=== PATIENT | female | born 1995 | race Caucasian/White ===

== ENCOUNTER 2018-11-09 10:03 | Emergency (ER) | payer MEDICAID ==
--- NOTE | 2018-11-09 10:17 | EDM.PDOC ---
ED HPI GENERAL MEDICAL PROBLEM - General Chief Complaint: Abdominal Pain Stated Complaint: abod pain Time Seen by Provider: 11/09/18 10:07 Source of Information: Reports: Patient History Limitations: Reports: No Limitations - History of Present Illness INITIAL COMMENTS - FREE TEXT/NARRATIVE: Patient presents from home by ambulance describing nausea, repeated vomiting, abdominal cramping over the last few days. Symptoms started at a lower intensity earlier but in the last 24 hours have worsened substantially. She can' t keep food down. She now is dry heaving, nothing is really coming up. She is noticed heartburn over the last week, which is not typical for her, as well as loading. She is uncertain whether she could be or not. Her last menstrual period was from 19 October through 24 October and was usual character. No one else ill around her with similar symptoms. She feels better at the moment compared to earlier this morning. No medications were given by paramedics. Onset: Gradual Duration: Day(s): (4) Location: Reports: Abdomen Quality: Reports: Burning Severity: Moderate Improves with: Reports: None Worsens with: Reports: None Context: Denies: Sick Contact - Related Data Allergies Allergy/AdvReac Type Severity Reaction Status Date / Time amoxicillin Allergy Hives Verified 08/01/16 15:14 Penicillins Allergy Hives Verified 08/01/16 15:14 Sulfa (Sulfonamide Allergy Hives Verified 08/01/16 15:14 Antibiotics) Home Meds: Home Meds Sertraline HCl [Zoloft] 200 mg PO BEDTIME 11/09/18 [History] Past Medical History Other Cardiovascular History: heart murmur as baby. no murmur now. 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 Denies: Fever GI/Abdominal: Reports: Abdominal Pain, Distension, Vomiting. Denies: Constipation, Diarrhea, Melena : Reports: No Symptoms Musculoskeletal: Reports: No Symptoms ED EXAM, GI/ABD - Physical Exam Exam: See Below Text/Narrative:: The patient is lying supine on the cart and room 5 using her cell phone when I enter. Exam Limited By: No Limitations General Appearance: Alert Respiratory/Chest: No Respiratory Distress Cardiovascular: Regular Rate, Rhythm GI/Abdominal Exam: Normal Bowel Sounds, Soft, Tender. No: Guarding, Rigid Course - Vital Signs Last Recorded V/S: Last Vital Signs Temp 35.7 C 11/09/18 10:30 Pulse 88 11/09/18 10:30 Resp 14 11/09/18 10:30 BP 153/97 H 11/09/18 10:30 Pulse Ox 95 11/09/18 10:30 - Orders/Labs/Meds Labs: Laboratory Tests 11/09/18 11/09/18 11/09/18 Range/Units 10:43 10:44 10:51 WBC 14.5 H (4.5-11.0) K/uL RBC 5.61 H (3.30-5.50) M/uL Hgb 15.1 H D (12.0-15.0) g/dL Hct 47.1 (36.0-48.0) % MCV 84 (80-98) fL MCH 27 (27-31) pg MCHC 32 (32-36) % Plt Count 214 (150-400) K/uL Neut % (Auto) 80 H (36-66) % Lymph % (Auto) 10 L (24-44) % [place] % (Auto) 7 H (2-6) % Eos % (Auto) 4 (2-4) % Baso % (Auto) 0 (0-1) % Sodium (140-148) mmol/L Potassium (3.6-5.2) mmol/L Chloride (100-108) mmol/L Carbon Dioxide (21-32) mmol/L Anion Gap (5.0-14.0) mmol/L BUN (7-18) mg/dL Creatinine (0.6-1.0) mg/dL Est Cr Clr Drug Dosing mL/min Estimated GFR (MDRD) (>60) Glucose (74-106) mg/dL Calcium (8.5-10.1) mg/dL Total Bilirubin (0.2-1.0) mg/dL AST (15-37) U/L ALT (12-78) U/L Alkaline Phosphatase (46-116) U/L Total Protein (6.4-8.2) g/dL Albumin (3.4-5.0) g/dL Globulin (2.3-3.5) g/dL Albumin/Globulin Ratio (1.2-2.2) Urine Color Yellow Urine Appearance Cloudy Urine pH 6.0 (4.5-8.0) Ur Specific [place] 1.015 (1.008-1.030) Urine Protein Trace (NEGATIVE) mg/dL Urine Glucose (UA) Normal (NEGATIVE) mg/dL Urine Ketones Negative (NEGATIVE) mg/dL Urine Occult Blood Negative (NEGATIVE) Urine Nitrite Negative (NEGATIVE) Urine Bilirubin Negative (NEGATIVE) Urine Urobilinogen Normal (NORMAL) mg/dL Ur Leukocyte Esterase Large (NEGATIVE) Urine RBC 0-5 (0-5) Urine WBC Semi-packed H (0-5) Ur Epithelial Cells Many Amorphous Sediment Few Urine Bacteria Many Urine Mucus Not seen Urine HCG, Qual Negative 11/09/18 Range/Units 10:51 WBC (4.5-11.0) K/uL RBC (3.30-5.50) M/uL Hgb (12.0-15.0) g/dL Hct (36.0-48.0) % MCV (80-98) fL MCH (27-31) pg MCHC (32-36) % Plt Count (150-400) K/uL Neut % (Auto) (36-66) % Lymph % (Auto) (24-44) % [place] % (Auto) (2-6) % Eos % (Auto) (2-4) % Baso % (Auto) (0-1) % Sodium 139 L (140-148) mmol/L Potassium 5.2 (3.6-5.2) mmol/L Chloride 102 (100-108) mmol/L Carbon Dioxide 30 (21-32) mmol/L Anion Gap 12.2 (5.0-14.0) mmol/L BUN 17 (7-18) mg/dL Creatinine 0.9 (0.6-1.0) mg/dL Est Cr Clr Drug Dosing 81.79 mL/min Estimated GFR (MDRD) > 60 (>60) Glucose 105 (74-106) mg/dL Calcium 9.0 (8.5-10.1) mg/dL Total Bilirubin 0.2 (0.2-1.0) mg/dL AST 15 (15-37) U/L ALT 16 (12-78) U/L Alkaline Phosphatase 90 (46-116) U/L Total Protein 6.9 (6.4-8.2) g/dL Albumin 3.8 (3.4-5.0) g/dL Globulin 3.1 (2.3-3.5) g/dL Albumin/Globulin Ratio 1.2 (1.2-2.2) Urine Color Urine Appearance Urine pH (4.5-8.0) Ur Specific [place] (1.008-1.030) Urine Protein (NEGATIVE) mg/dL Urine Glucose (UA) (NEGATIVE) mg/dL Urine Ketones (NEGATIVE) mg/dL Urine Occult Blood (NEGATIVE) Urine Nitrite (NEGATIVE) Urine Bilirubin (NEGATIVE) Urine Urobilinogen (NORMAL) mg/dL Ur Leukocyte Esterase (NEGATIVE) Urine RBC (0-5) Urine WBC (0-5) Ur Epithelial Cells Amorphous Sediment Urine Bacteria Urine Mucus Urine HCG, Qual - Re-Assessments/Exams Free Text/Narrative Re-Assessment/Exam: 11/09/18 10:51 Patient appears comfortable at this time. We will check labs, including test. She'll be given a GI cocktail and see what that does for her other symptoms. Reviewed test results which are remarkable primarily for abnormal urine. She states that she does get periodic UTIs. We'll treat with antibiotics over the next 5 days. If the nausea is related to the UTI both should improve. If the nausea does not improve while on antibiotics and likely is one of the viral gastroenteritis conditions which will improve on its own eventually. Prescriptions sent for nitrofurantoin 100 mg, 10 tablets; promethazine 25 mg, 6 tablets; both use as directed. Follow-up with primary care if not improved in the next week. 11/09/18 12:28 Departure - Departure Time of Disposition: 12:23 Disposition: Home, Self-Care 01 Condition: Good Clinical Impression: Gastroenteritis UTI (urinary tract infection) Qualifiers: Urinary tract infection type: site unspecified Hematuria presence: without hematuria Qualified Code(s): N39.0 - Urinary tract infection, site not specified - Discharge Information *PRESCRIPTION DRUG MONITORING PROGRAM REVIEWED*: Not Applicable *COPY OF PRESCRIPTION DRUG MONITORING REPORT IN PATIENT ODILIA: Not Applicable Instructions: Viral Gastroenteritis, Adult, [id number] Referrals: PCP,None [Primary Care Provider] - Forms: ED Department Discharge Additional Instructions: Start antibiotic today. Avoid dairy products until upset stomach goes away. Use nausea medication if needed. If the upset stomach is from your bladder infection , as that improves to expect the vomiting and stomach pain to be better. If it doesn't change while on the antibiotic that likely is one of the stomach viruses that will take 5 days or so to completely go away.
[2018-11-09 10:30] VITALS: BP 153/97
== END 2018-11-09 12:31 | disposition home or self-care (01) ==
LOC: JP.ED 10:03
DX: K52.9 Noninfective gastroenteritis and colitis, unspecified (principal); N39.0 Urinary tract infection, site not specified; Z88.1 Allergy status to other antibiotic agents; Z88.2 Allergy status to sulfonamides
CPT/HCPCS: 36415; 80053; 81001; 81025; 85025; 99284

== ENCOUNTER 2019-09-21 19:14 | Emergency (ER) | payer MEDICAID, OTHER ==
[2019-09-21] MEDS ORDERED: Ondansetron 4 MG Tab.DIS PO ONE (19:17)
[2019-09-21 19:46] VITALS: BP 127/87; PULSE 87
--- NOTE | 2019-09-21 19:53 | EDM.PDOC ---
ED HPI GENERAL MEDICAL PROBLEM - General Chief Complaint: Respiratory Problem Stated Complaint: COUGH, SWEATING, NAUSEA Time Seen by Provider: 09/21/19 19:45 Source of Information: Reports: Patient, Old Records, RN History Limitations: Reports: No Limitations - History of Present Illness INITIAL COMMENTS - FREE TEXT/NARRATIVE: 24 yo female here with illness since Sunday night. Sx's include chills, no definite fever, cough, and diarrhea. No recent travels or exposures to Covid- 19. No tx prior to arrival. Onset: Gradual Onset Date: 09/19/19 Duration: Day(s): (2), Constant Location: Reports: Chest, Abdomen Quality: Reports: Other (no pain) Severity: Mild Improves with: Reports: None Worsens with: Reports: Other (unknown) Context: Reports: Other (See HPI) Associated Symptoms: Reports: Cough, Fever/Chills (no fever), Malaise, Nausea/ Vomiting (no vomiting). 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 no murmur now. 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 Musculoskeletal History: Reports: Fracture Other Musculoskeletal History: fx patella Neurological History: Reports: Headaches, Chronic Psychiatric History: Reports: Addiction, Anxiety, Depression, Psych Hospitalization(s), Suicide Attempt - Infectious Disease History Infectious Disease History: Reports: None - Past Surgical History HEENT Surgical History: Reports: Myringotomy w Tube(s), Tonsillectomy Social & Family History - Tobacco Use Smoking Status *Q: Current Every Day Smoker Years of Tobacco use: 11 Packs/Tins Daily: 0.2 - Caffeine Use Caffeine Use: Reports: Coffee, Soda - Recreational Drug Use Recreational Drug Use: No ED ROS GENERAL - Review of Systems Review Of Systems: See Below Constitutional: Reports: No Symptoms HEENT: Reports: No Symptoms Respiratory: Reports: Cough. Denies: Shortness of Breath, Wheezing, Sputum, Hemoptysis Cardiovascular: Reports: No Symptoms Endocrine: Reports: No Symptoms GI/Abdominal: Reports: Diarrhea, Nausea. Denies: Black Stool, Bloody Stool, Constipation, Distension, Hematochezia, Vomiting : Reports: No Symptoms Musculoskeletal: Reports: No Symptoms Skin: Reports: No Symptoms Neurological: Reports: No Symptoms Psychiatric: Reports: No Symptoms ED EXAM, GENERAL - Physical Exam Exam: See Below Exam Limited By: No Limitations General Appearance: Alert, WD/WN, No Apparent Distress Eye Exam: Bilateral Eye: Normal Inspection Ears: Normal External Exam, Normal Canal, Hearing Grossly Normal, Normal TMs Ear Exam: Bilateral Ear: Auricle Normal, Canal Normal, TM normal Nose: Normal Inspection, No Blood Throat/Mouth: Normal Inspection, Normal Lips, Normal Oropharynx, Normal Voice, No Airway Compromise Head: Atraumatic, Normocephalic Neck: Normal Inspection Respiratory/Chest: No Respiratory Distress, Lungs Clear, Normal Breath Sounds, No Accessory Muscle Use Cardiovascular: Regular Rate, Rhythm, No Edema Extremities: Normal Inspection Neurological: Alert, Oriented, CN II-XII Intact, Normal Cognition, No Motor/ Sensory Deficits Psychiatric: Normal Affect, Normal Mood Skin Exam: Warm, Dry, Intact, Normal Color, No Rash Course - Vital Signs Last Recorded V/S: Last Vital Signs Temp 35.7 C L 09/21/19 19:45 Pulse 87 09/21/19 19:45 Resp 18 09/21/19 19:45 BP 127/87 09/21/19 19:45 Pulse Ox 98 09/21/19 19:45 - Orders/Labs/Meds Orders: Active Orders 24 hr Category Date Time Status Isolation [COMM] Routine Oth 09/21/19 19:50 Ordered Labs: Laboratory Tests 09/21/19 Range/Units 20:05 WBC 9.5 (4.5-11.0) K/uL RBC 5.21 (3.30-5.50) M/uL Hgb 14.4 (12.0-15.0) g/dL Hct 44.3 (36.0-48.0) % MCV 85 (80-98) fL MCH 28 (27-31) pg MCHC 33 (32-36) % Plt Count 263 (150-400) K/uL Meds: Medications Discontinued Medications Generic Name Dose Route Start Last Admin Trade Name Matthew PRN Reason Stop Dose Admin Ondansetron HCl 4 mg 09/21/19 19:17 09/21/19 19:54 Zofran Odt PO 09/21/19 19:18 4 mg ONETIME ONE Administration Departure - Departure Time of Disposition: 20:21 Disposition: Home, Self-Care 01 Condition: Good Clinical Impression: Viral URI with cough - Discharge Information *PRESCRIPTION DRUG MONITORING PROGRAM REVIEWED*: No *COPY OF PRESCRIPTION DRUG MONITORING REPORT IN PATIENT ODILIA: No Instructions: Viral Respiratory Infection, [id number] Referrals: PCP,None [Primary Care Provider] - Forms: ED Department Discharge Additional Instructions: Acetaminophen as needed for pain or fever control. Robitussin DM as needed for cough. Recheck with your provider as needed. Sepsis Event Note - Evaluation Sepsis Screening Result: No Definite Risk - Focused Exam Vital Signs: Vital Signs Temp Pulse Resp BP Pulse Ox 09/21/19 19:45 35.7 C L 87 18 127/87 98 Date Exam was Performed: 09/21/19 Time Exam was Performed: 20:20 - My Orders Last 24 Hours: My Active Orders 09/21/19 19:50 Isolation [COMM] Routine - Assessment/Plan Last 24 Hours: My Active Orders 09/21/19 19:50 Isolation [COMM] Routine
== END 2019-09-21 20:29 | disposition home or self-care (01) ==
LOC: JP.ED 19:14
DX: J06.9 Acute upper respiratory infection, unspecified (principal); F17.210 Nicotine dependence, cigarettes, uncomplicated; F32.9 Major depressive disorder, single episode, unspecified; Z79.899 Other long term (current) drug therapy; Z88.1 Allergy status to other antibiotic agents; Z88.0 Allergy status to penicillin; Z88.2 Allergy status to sulfonamides
CPT/HCPCS: 36415; 85027; 87804; 99283; A9270

== ENCOUNTER 2019-10-16 18:55 | Emergency (ER) | payer MEDICAID ==
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
[2019-10-16] MEDS ORDERED: Acetaminophen 325 MG Tab PO ONE (20:23)
[2019-10-16 20:32] VITALS: BP 128/73; PULSE 98
--- NOTE | 2019-10-16 20:36 | CRLCR ---
Indication: Fall with lateral pain Technique: Three views right hand Comparison: None Findings: Bones: Alignment is normal. No fractures or bone lesions. Joint spaces: Unremarkable. Soft tissues: Unremarkable. Impression: Negative. Dictated by Radha Cardona MD @ Oct 16 2019 8:33PM Signed by Dr. Radha Cardona @ Oct 16 2019 8:35PM
== END 2019-10-16 20:51 | disposition home or self-care (01) ==
LOC: JP.ED 18:55
DX: S63.501A Unspecified sprain of right wrist, initial encounter (principal); S60.511A Abrasion of right hand, initial encounter; F41.9 Anxiety disorder, unspecified; F32.9 Major depressive disorder, single episode, unspecified; F17.210 Nicotine dependence, cigarettes, uncomplicated; Z88.1 Allergy status to other antibiotic agents; Z88.0 Allergy status to penicillin; Z88.2 Allergy status to sulfonamides; Z79.899 Other long term (current) drug therapy; W22.8XXA Striking against or struck by other objects, initial encounter
CPT/HCPCS: 73110; 99283; A9270

== ENCOUNTER 2021-06-19 04:15 | Emergency (ER) | payer MEDICAID ==
[2021-06-19] MEDS ORDERED: Ondansetron 4 MG Tab.DIS PO ONE ×2 (04:30→04:36)
[2021-06-19] MEDS ORDERED: Ondansetron 4 MG Tab.DIS ONE (04:37)
[2021-06-19 04:42] VITALS: BP 148/76; PULSE 86
--- NOTE | 2021-06-19 04:43 | EDM.PDOC ---
ED HPI GENERAL MEDICAL PROBLEM - General Chief Complaint: Gastrointestinal Problem Stated Complaint: PUKING Time Seen by Provider: 06/19/21 04:29 Source of Information: Reports: Patient, Old Records History Limitations: Reports: No Limitations - History of Present Illness INITIAL COMMENTS - FREE TEXT/NARRATIVE: [id number] female presenting to the ED for hyperemesis gravidarum. Patient is -0-0-3 who is currently 7 weeks and receives her care from Dr. Watts at [place]. She has not been able to get into her doctor to get a refill of her Zofran. Each of her pregnancies have been complicated by hyperemesis gravidarum in at least the first trimester. The patient is hysterical and blabbering in the room stating all she wants to do a sleep as she is not been able to because she has been "puking" all night. - Related Data Allergies Allergy/AdvReac Type Severity Reaction Status Date / Time amoxicillin Allergy Hives Verified 06/19/21 04:18 Penicillins Allergy Hives Verified 06/19/21 04:18 Sulfa (Sulfonamide Allergy Hives Verified 06/19/21 04:18 Antibiotics) Home Meds: Home Meds Sertraline HCl [Zoloft] 200 mg PO ASDIRECTED 11/09/18 [History] Pnv No.95/Ferrous Fum/Folic AC [ Vitamins Tablet] 1 tab PO DAILY 10/16/19 [History] Ondansetron [Ondansetron ODT] 4 mg SL ASDIRECTED 06/19/21 [History] Past Medical History HEENT History: Reports: Impaired Vision Cardiovascular History: Reports: Heart Murmur Other Cardiovascular History: heart murmur as baby. no murmur now. Genitourinary History: Reports: UTI, Recurrent PERINATAL EDUCATOR History: Reports: , Other (See Below) Other PERINATAL EDUCATOR History: PIH Musculoskeletal History: Reports: Fracture Other Musculoskeletal History: fx patella Neurological History: Reports: Concussion, Headaches, Chronic Psychiatric History: Reports: Addiction, Anxiety, Depression, Psych Hospitalization(s), PTSD, Suicide Attempt - Infectious Disease History Infectious Disease History: Reports: None - Past Surgical History HEENT Surgical History: Reports: Myringotomy w Tube(s), Tonsillectomy Musculoskeletal Surgical History: Reports: None Social & Family History - Tobacco Use Tobacco Use Status *Q: Current Every Day Tobacco User Years of Tobacco use: 10 Packs/Tins Daily: 0.5 - Caffeine Use Caffeine Use: Reports: Coffee, Energy Drinks, Soda - Recreational Drug Use Recreational Drug Use: No ED ROS GENERAL - Review of Systems Review Of Systems: See Below Constitutional: Reports: No Symptoms HEENT: Reports: No Symptoms Respiratory: Reports: No Symptoms Cardiovascular: Reports: No Symptoms Endocrine: Reports: No Symptoms GI/Abdominal: Reports: Nausea, Vomiting : Reports: No Symptoms Musculoskeletal: Reports: No Symptoms Skin: Reports: No Symptoms Neurological: Reports: No Symptoms Psychiatric: Reports: Agitation, Anxiety Hematologic/Lymphatic: Reports: No Symptoms Immunologic: Reports: No Symptoms ED EXAM - Physical Exam Exam: See Below Exam Limited By: No Limitations General Appearance: Alert, Anxious, Moderate Distress Throat/Mouth: Normal Inspection, Normal Oropharynx, Normal Voice, No Airway Compromise Head: Atraumatic Respiratory/Chest: No Respiratory Distress, Lungs Clear, Normal Breath Sounds Cardiovascular: Normal Peripheral Pulses, Regular Rate, Rhythm, No Murmur GI/Abdominal Exam: Normal Bowel Sounds, Soft, Non-Tender. No: Guarding, Rebound Neurological: Alert, Normal Cognition, No Motor/Sensory Deficits Psychiatric: Anxious Skin Exam: Warm, Dry Course - Vital Signs Last Recorded V/S: Last Vital Signs Temp 36.2 C 06/19/21 04:28 Pulse 86 06/19/21 04:28 Resp 20 06/19/21 04:28 BP 148/76 H 06/19/21 04:28 Pulse Ox 100 06/19/21 04:28 - Orders/Labs/Meds Orders: Active Orders 24 hr Category Date Time Status CBC WITH AUTO DIFF [HEME] Stat Lab 06/19/21 04:30 Ordered COMPREHENSIVE METABOLIC PN,CMP [CHEM] Stat Lab 06/19/21 04:30 Ordered HCG QUANTITATIVE [CHEM] Stat Lab 06/19/21 04:30 Ordered Ondansetron [Zofran ODT] Med 06/19/21 04:36 Once 4 mg PO ONETIME ONE Meds: Medications Discontinued Medications Generic Name Dose Route Start Last Admin Trade Name Freq PRN Reason Stop Dose Admin Ondansetron HCl 4 mg 06/19/21 04:30 Ondansetron 4 Mg Tab.Dis PO 06/19/21 04:31 ONETIME ONE - Re-Assessments/Exams Free Text/Narrative Re-Assessment/Exam: 06/19/21 04:40 patient is writhing around in bed inconsolable due to her anxiety. She states that she is only "Effing here for her Zofran to be renewed" and she is upset because she cannot get into her primary doctor, Dr. Watts to get a refill of her prescription because it is the "Effing weekend". I did explain that since she has been vomiting I would like to check some labs and ordered Zofran ODT 8 mg for her, however, when the nurse went in to give it to her, the patient questioned the need for labs and then the patient eloped. Departure - Departure Time of Disposition: 04:40 Disposition: Eloped 07 Clinical Impression: Hyperemesis gravidarum - Discharge Information Referrals: Racheal Schrader PA [Primary Care Provider] - Sepsis Event Note (ED) - Evaluation Sepsis Screening Result: No Definite Risk - Focused Exam Vital Signs: Vital Signs Temp Pulse Resp BP Pulse Ox 06/19/21 04:28 36.2 C 86 20 148/76 H 100 - Problem List & Annotations (1) Hyperemesis gravidarum SNOMED Code(s): 34515205 Code(s): O21.0 - MILD HYPEREMESIS GRAVIDARUM Status: Acute Priority: Medium - Problem List Review Problem List Initiated/Reviewed/Updated: Yes - My Orders Last 24 Hours: My Active Orders 06/19/21 04:30 CBC WITH AUTO DIFF [HEME] Stat COMPREHENSIVE METABOLIC PN,CMP [CHEM] Stat HCG QUANTITATIVE [CHEM] Stat 06/19/21 04:36 Ondansetron [Zofran ODT] 4 mg PO ONETIME ONE - Assessment/Plan Last 24 Hours: My Active Orders 06/19/21 04:30 CBC WITH AUTO DIFF [HEME] Stat COMPREHENSIVE METABOLIC PN,CMP [CHEM] Stat HCG QUANTITATIVE [CHEM] Stat 06/19/21 04:36 Ondansetron [Zofran ODT] 4 mg PO ONETIME ONE
== END 2021-06-19 04:41 | disposition left against medical advice (07) ==
LOC: JP.ED 04:15
DX: O21.0 Mild hyperemesis gravidarum (principal); Z72.0 Tobacco use; Z88.0 Allergy status to penicillin; Z88.2 Allergy status to sulfonamides; Z3A.01 Less than 8 weeks gestation of pregnancy
CPT/HCPCS: 99283; A9270

== ENCOUNTER 2022-11-03 18:22 | Emergency (ER) | payer MEDICAID ==
[2022-11-03 18:45] VITALS: PULSE 109
[2022-11-03 19:51] LABS: APPEARANCE,URINE CLOUDY (CLEAR); BILIRUBIN,URINE NEGATIVE (NEGATIVE); COLOR,URINE YELLOW (YELLOW); GLUCOSE,URINE NEGATIVE (NEGATIVE); KETONES,URINE TRACE mg/dL (NEGATIVE); LEUKOCYTE ESTERASE,URINE NEGATIVE (NEGATIVE); NITRITE,URINE NEGATIVE (NEGATIVE); OCCULT BLOOD,URINE NEGATIVE (NEGATIVE); PH,URINE 5.5 (5.0-8.0); PROTEIN,URINE 100 mg/dL (NEGATIVE); UROBILINOGEN,URINE 0.2 EU/dL (0.2-1.0)
[2022-11-03 19:59] LABS: AMORPHOUS SEDIMENT,URINE NOT SEEN; BACTERIA,URINE MANY; EPITHELIAL CELLS,URINE MANY; MUCUS,URINE FEW; RBC,URINE 0-5 (0-5)
[2022-11-03] MEDS ORDERED: Azithromycin 250 MG Tab PO ONE (20:58)
[2022-11-03] MEDS ORDERED: cefTRIAXone 500 MG, Lidocaine 1% 1 ML IM ONE ×2 (20:58)
[2022-11-03 21:47] VITALS: BP 132/75
[2022-11-08 08:12] LABS: CHLAMYDIA TRACHOMATIS, NAA Negative (Negative); NEISSERIA GONORRHOEAE, NAA Negative (Negative)
== END 2022-11-03 21:48 | disposition home or self-care (01) ==
LOC: JP.ED 18:22
DX: Z20.2 Contact with and (suspected) exposure to infections with a predominantly sexual mode of transmission (principal); Z88.0 Allergy status to penicillin; Z88.2 Allergy status to sulfonamides; Z72.0 Tobacco use
CPT/HCPCS: 81001; 81025; 86694; 86695; 86696; 87491; 87591; 96372; 99283; A9270; J0696; 36415

== ENCOUNTER 2022-11-20 10:24 | Emergency (ER) | payer MEDICAID ==
[2022-11-20 10:46] VITALS: BP 126/74; PULSE 91
== END 2022-11-20 11:12 | disposition home or self-care (01) ==
LOC: JP.ED 10:24
DX: L50.9 Urticaria, unspecified (principal); F17.210 Nicotine dependence, cigarettes, uncomplicated; Z88.0 Allergy status to penicillin; Z88.2 Allergy status to sulfonamides
CPT/HCPCS: 99282

== ENCOUNTER 2024-06-03 15:08 | Emergency (ER) | payer MEDICAID ==
[2024-06-03 16:48] LABS: BASOPHILS ABSOLUTE AUTO 0.03 K/uL (0.00-0.10); BASOPHILS PERCENT AUTO 0.3 % (0.1-1.3); EOSINOPHILS ABSOLUTE AUTO 0.14 K/uL (0.00-0.40); EOSINOPHILS PERCENT AUTO 1.4 % (0.0-5.4); HEMATOCRIT 35.9 % (34.3-46.0); HEMOGLOBIN 12.1 g/dL (11.2-15.5); IMMATURE GRAN ABSOLUTE AUTO 0.04 K/uL (0.00-0.23); IMMATURE GRAN PERCENT AUTO 0.4 % (0.0-0.7); LYMPHOCYTES ABSOLUTE AUTO 1.96 K/uL (0.8-3.3); LYMPHOCYTES PERCENT AUTO 19.6 % (11.4-47.7); MEAN CORPUSCULAR HEMOGLOBIN 28.5 pg (31.6-35.5); MEAN CORPUSCULAR HGB CONC 33.7 g/dL (31.6-35.5); MEAN CORPUSCULAR VOLUME 84.7 fL (81.4-99.0); MONOCYTES ABSOLUTE AUTO 0.66 K/uL (0.20-0.90); MONOCYTES PERCENT AUTO 6.6 % (3.3-12.6); NEUTROPHILS ABSOLUTE AUTO 7.19 K/uL (1.0-7.6); NEUTROPHILS PERCENT AUTO 71.7 % (40.0-78.1); PLATELET COUNT,PLT 164 K/uL (130-375); RED BLOOD CELL COUNT 4.24 M/uL (3.77-5.24)
[2024-06-03 17:06] LABS: APPEARANCE,URINE SLIGHTLY CLOUDY (CLEAR); BILIRUBIN,URINE NEGATIVE (NEGATIVE); COLOR,URINE YELLOW (YELLOW); GLUCOSE,URINE NEGATIVE (NEGATIVE); KETONES,URINE NEGATIVE (NEGATIVE); LEUKOCYTE ESTERASE,URINE TRACE (NEGATIVE); NITRITE,URINE NEGATIVE (NEGATIVE); OCCULT BLOOD,URINE NEGATIVE (NEGATIVE); PROTEIN,URINE NEGATIVE (NEGATIVE); UROBILINOGEN,URINE 0.2 EU/dL (0.2-1.0)
[2024-06-03 17:06] LABS: INR 0.9; PROTHROMBIN TIME 9.5 sec (9.2-10.6); PTT,PARTIAL THROMBOPLSTIN TIME 26.6 sec (21.8-27.3)
[2024-06-03 17:07] LABS: A/G RATIO 0.8 (1.2-2.2); ALANINE AMINOTRANSFERASE,ALT 20 U/L (12-78); ALBUMIN 2.8 g/dL (3.4-5.0); ALKALINE PHOSPHATASE 164 U/L (46-116); ASPARTATE AMNIOTRANSFERASE,AST 12 U/L (15-37); BILIRUBIN TOTAL 0.2 mg/dL (0.2-1.0); BLOOD UREA NITROGEN,BUN 10 mg/dL (7-18); CALCIUM 8.7 mg/dL (8.5-10.1); CARBON DIOXIDE,CO2 27 mmol/L (21-32); CHLORIDE,CL 103 mmol/L (100-108); CREATININE 0.7 mg/dL (0.6-1.0); EST CRCL DRUG DOSING (CG) 99.86 mL/min; ESTIMATED GFR 121 mL/min (>60); GLUCOSE RANDOM 75 mg/dL (74-106); POTASSIUM,K 4.1 mmol/L (3.6-5.2); PROTEIN TOTAL,TP 6.4 g/dL (6.4-8.2); SODIUM,NA 136 mmol/L (140-148)
[2024-06-03 17:08] LABS: ANION GAP 10.1 mmol/L (5.0-14.0)
[2024-06-03 17:18] LABS: AMORPHOUS SEDIMENT,URINE NOT SEEN; BACTERIA,URINE MANY; EPITHELIAL CELLS,URINE MANY; MUCUS,URINE NOT SEEN; RBC,URINE 0-5 (0-5); WBC,URINE 0-5 (0-5)
[2024-06-03 17:34] LABS: CREATININE,URINE RAND 60.2 mg/dL (20.0-370.0); PROTEIN CREATININE RATIO,URINE 302.3 mg/g (21.0-161.0); PROTEIN,URINE RANDOM 18.2 mg/dL (6.0-11.9)
[2024-06-03 18:18] VITALS: BP 127/83; PULSE 92
== END 2024-06-03 19:04 | disposition home or self-care (01) ==
LOC: JP.ED 15:08
DX: O16.3 Unspecified maternal hypertension, third trimester (principal); Z87.891 Personal history of nicotine dependence; Z88.0 Allergy status to penicillin; Z88.2 Allergy status to sulfonamides; Z79.899 Other long term (current) drug therapy; Z3A.38 38 weeks gestation of pregnancy
CPT/HCPCS: 36415; 80053; 81001; 82570; 84156; 85025; 85610; 85730; 87086; 99284